=== PATIENT | female | born 1975 | race Two or more races ===

== ENCOUNTER 2019-07-06 05:45 | Day surgery (SDC) | payer OTHER ==
[~2019-07-06 05:45] MED LIST: CRESTOR5 MG PO; LEVOTHYROXINE25 MCG PO; NASONEX17 GM NS; XYZAL5 MG PO; ZEGERID 40 MG1 EACH PO
[2019-07-06] MEDS ORDERED: PEPCID AC20 MG PO (11:07)
[2019-07-06] MEDS ORDERED: PERCOCET 5-3251 EACH PO (11:07)
[2019-07-06] MEDS ORDERED: KETO10TA2 PO (11:08)
[2019-07-06] MEDS ORDERED: ONDANSETRON ODT4 MG PO (11:09)
== END 2019-07-06 14:05 | disposition home or self-care (01) ==
LOC: CIR.AMB 05:45
DX: K80.10 Calculus of gallbladder with chronic cholecystitis without obstruction (principal)